=== PATIENT | female | born 2000 | race Caucasian/White ===

== ENCOUNTER → 2019-01-03 17:09 | Outpatient (CLI) | payer OTHER, SELFPAY ==
[2019-01-03 13:53] VITALS: BMI 24.5
[2019-01-03 19:09] LABS: Chlamydia Trachomatis by PCR Negative (Negative); Neisserai gonorrhoeae by PCR Negative (Negative); Probe Check PASS; Sample Adequacy Control PASS; Specimen Processing Control PASS
== END ==
PROVIDERS: Family Provider Family Medicine; PCP Family Medicine; Referring Provider Nurse Practitioner Women's Health; Visit Provider Nurse Practitioner Women's Health
DX: Z11.3 Encounter for screening for infections with a predominantly sexual mode of transmission (principal); N94.9 Unspecified condition associated with female genital organs and menstrual cycle
CPT/HCPCS: 87070; 87205; 87491; 87591